=== PATIENT | male | born 1940 | race Caucasian/White ===

== ENCOUNTER 2017-05-03 17:07 | Inpatient (IN) | payer MEDICARE ==
[2017-05-03] MEDS ORDERED: Gadobenate Dimeglumine 529 MG/1 ML (20ML VIAL) ONE ×2 (17:27)
[2017-05-03 18:03] LABS: #Lymphocytes 0.7 thou/uL (1.20-3.40); #Monocytes 0.4 thou/uL (0.11-0.59); #Neutrophils 8.3 thou/uL (1.40-6.50); %Basophils 0.2 % (0.0-1.0); %Eosinophils 0.1 % (0.0-10.0); %Lymphocytes 6.9 % (21.0-51.0); %Monocytes 4.7 % (0.0-10.0); Hematocrit 43.1 % (42.0-52.0); Mean Platelet Volume 6.1 fL (7.4-10.4); Red Blood Cell (RBC) Count 4.79 mill/uL (4.70-6.10); White Blood Cell (WBC) Count 9.4 thou/uL (4.8-10.8)
[2017-05-03 18:21] LABS: ALT (SGPT) 14 U/L (8-55); AST (SGOT) 18 U/L (5-34); Alkaline Phosphatase 79 U/L (40-150); Anion Gap 12 mmol/L (10-20); BUN (Urea Nitrogen) 24 mg/dL (8.4-25.7); Bilirubin, Total 0.6 mg/dL (0.2-1.2); Calc. Creatinine Clearance 0 mL/min (70-130); Calcium 9.2 mg/dL (7.8-10.44); Carbon Dioxide 25 mmol/L (23-31); Chloride 103 mmol/L (98-107); Estimated GFR-MDRD 55; Protein, Total 6.8 g/dL (5.8-8.1)
[2017-05-03] MEDS ORDERED: Lorazepam 2 MG/ML VIAL ONE (19:10)
[2017-05-03 19:33] LABS: Bilirubin Negative (Negative); Blood, Urine Negative (Negative); Glucose, Urine (Dipstick) Negative (Negative); Ketone, Urine Negative (Negative); Nitrite Negative (Negative); Protein, Urine (Dipstick) Negative (Neg-Trace)
--- NOTE | 2017-05-03 21:27 | MRI ---
MRI LUMBAR SPINE WITH AND WITHOUT CONTRAST 05/03/17 HISTORY: Discitis/osteomyelitis at L3-4. This is confirmed on the outside facility MRI. COMPARISON: Outside facility MRI seen on a disc and not uploaded to PACS on the same day. FINDINGS: There is an abnormal enhancement of the inferior end plate of L3 and superior end plate of L4 with pe ripheral enhancing fluid in the disc space. This has an epidural component, anterior dural component, causing some mild compression upon the thecal sac which is narrowed to approximately 6 mm at this le gabriela. There is also extension of infection to the bilateral psoas muscles. A small peripherally enhanc ing collection of the left psoas muscle measuring approximately 7 mm. Levels are as follows: T12-L1: Moderate disc degeneration. No significant neural foraminal or spinal canal narrowing. L1-2: Large anterior disc osteophyte complex. Moderate disc arthropathy. No significant spinal canal narrowing. Spinal canal measures approximately 1 cm. Moderate left and mild right sided neural forami nal narrowing. L2-3: Severe degenerative disc space height loss. Moderate facet arthropathy. Posterior disc osteophy te complex. Moderate bilateral neural foraminal narrowing. The spinal canal measures approximately 8 mm. L3-4: As described above, there is abnormal fluid attenuation of the disc space with enhancement and anterior epidural spread of enhancing phlegmonous tissue and abscess. This extends along the exiting L3 nerve roots. There is also enhancing tissue along the posterior elements and the paraspinal muscul ature although this is likely reflective of scar from prior intervention. L4-5: Severe degenerative disc space height loss. Posterior disc osteophyte complex. Severe facet art hropathy. There is subsequent moderate to severe bilateral neural foraminal narrowing. The thecal sac is narrowed to approximately 7 mm. L5-S1: Severe degenerative disc space disease. Moderate facet arthropathy. Moderate to severe right a nd moderate left sided neural foraminal narrowing. IMPRESSION: Findings suggestive of discitis and osteomyelitis of L3-4 with anterior epidural spread of infection, narrowing the spinal canal to approximately 6 mm as well as abnormal enhancement of bilateral psoas muscles with small left intramuscular abscess measuring less than 1 cm. POS: [facility]
--- NOTE | 2017-05-03 21:29 | MRI ---
MRI THORACIC SPINE WITH AND WITHOUT CONTRAST 05/03/17 HISTORY: Abscess, osteomyelitis, discitis at lumbar spine. COMPARISON: Outside facility MRI dated the same. FINDINGS: No evidence of osteomyelitis or discitis of the thoracic spine. Normal thoracic kyphosis. No abnormal epidural enhancement. Cord signal is normal. No significant neural foraminal or spinal canal narrowi ng. The paraspinal soft tissues are unremarkable. The aortic contour is normal. IMPRESSION: No evidence of osteomyelitis or discitis of the thoracic spine. POS: [facility]
[2017-05-04] MEDS ORDERED: Sodium Chloride 0.45% 1,000 ML IV SCH (00:01)
[2017-05-04] MEDS ORDERED: Ondansetron HCl/PF 4 MG/2 ML Vial IVP PRN (00:01)
[2017-05-04] MEDS ORDERED: Morphine 4 MG/ML VIAL IV PRN (00:01)
[2017-05-04] MEDS ORDERED: Acetaminophen 325 MG TAB PO PRN (00:01)
[2017-05-04] MEDS ORDERED: Ondansetron ODT 4 MG TAB SL PRN (00:01)
[2017-05-04 00:12] VITALS: BMI 29.7
[2017-05-04] MEDS ORDERED: tiZANidine HCl 4 MG TAB PO PRN (06:39)
[2017-05-04] MEDS ORDERED: HYDROcodone/Acetaminophen 7.5/325 mg Tablet PO PRN (06:39)
[2017-05-04] MEDS ORDERED: traMADol HCl 50 MG TAB PO PRN (06:39)
[2017-05-04] MEDS ORDERED: Mag-Al 1200 mg/1200 mg/30 ML UDCUP PO PRN (06:39)
[2017-05-04] MEDS ORDERED: diphenhydrAMINE 50 MG/ML VIAL IVP PRN (06:39)
[2017-05-04] MEDS ORDERED: Milk Of Magnesia 30 ML UDCUP PO PRN (06:39)
--- NOTE | 2017-05-04 09:05 | HP ---
HISTORY OF PRESENT ILLNESS: The patient is a 77-year-old male with a past medical history of coronary artery disease, prior CABG, chronic back pain with multiple prior lumbar surgeries with no reported instrumentation who presented to the emergency department last night after he was notified by an outpatient facility for findings on his MRI suspicious for osteomyelitis and diskitis. Patient reports that he has had a long history of low back pain that has become progressively worse over the last few months without any inciting event. He describes as a dull ache radiating all across his lumbar spine. He denies any leg pain, weakness, numbness, tingling, or bowel or bladder issues. His symptoms are worse with standing for long periods of time and sometimes better with rest. He denies any prior infectious events following his previous lumbar surgeries. He denies any other associated symptoms. PAST MEDICAL HISTORY: Hypertension, hyperlipidemia, coronary artery disease. PAST SURGICAL HISTORY: Coronary artery bypass graft. SOCIAL HISTORY: The patient does not use any drugs. He does not smoke. He drinks socially approximately every other week. ALLERGIES: Patient has no known drug allergies. CURRENT MEDICATIONS: Simvastatin, metoprolol, Cilostazol. REVIEW OF SYSTEMS: Per HPI. PHYSICAL EXAM- NAD, VSS NCAT OP clear, moist oral mucosa Neck NTTP, no meningismus or nuchal rigidity Cardiac RRR Lungs CTAB MSK- FAROM all extremities, no focal weakness Back- TTP over the lumbar spine and paralumbar msk Neuro- AOX4, normal CN exam, no focal deficits IMAGING: MRI of the lumbar spine with and without contrast showed an abnormal fluid collection in the disk space with enhancement suspicious for abscess at L3 -L4. There is also abnormal enhancement of the endplates of L3 and L4 suspicious for osteomyelitis. ASSESSMENT: Osteomyelitis, diskitis, epidural abscess. PLAN: Patient will be admitted to the Neurosurgery service. I have also consulted the Medicine Service and Infectious Disease for further assistance. Blood cultures ordered and the patient was started on IV vancomycin and Zosyn. I will discuss the patient's presentation, exam findings and imaging with Dr. Rodriguez. He will also see the patient. KENDALL
[2017-05-04] MEDS: Vancomycin HCl 1 GM in Premix Bag 1 BAG IVPB SCH ×3 (10:23→16:30)
[2017-05-04] MEDS: Valsartan 80 MG TAB PO SCH (10:24)
[2017-05-04] MEDS: Sodium Chloride 0.45% 1,000 ML IV SCH (10:55)
[2017-05-04 12:10] LABS: PTT 36.9 SEC (22.9-36.1)
[2017-05-04] MEDS ORDERED: Sodium Bicarbonate 2.4 MEQ/5 ML ONE (12:24)
[2017-05-04] MEDS ORDERED: Fentanyl 100 MCG/2 ML VIAL ONE (12:25)
[2017-05-04] MEDS ORDERED: Midazolam HCl 2 mg/2 ml Vial ONE (12:25)
--- NOTE | 2017-05-04 12:37 | PDOC.PN ---
- Subjective Encounter Start Date: 05/04/17 Encounter Start Time: 10:15 Subjective: no fever or weakness in his extremities which are new -: no incontinence of urine or stool - Objective MAR Reviewed: Yes Vital Signs & Weight: Vital Signs (12 hours) Temp Pulse Resp BP Pulse Ox 05/04/17 08:00 97.6 F 66 14 153/75 H 95 05/04/17 04:27 98.5 F 67 18 134/77 98 Weight Weight 196 lb I&O: 05/03/17 05/04/17 05/05/17 06:59 06:59 06:59 Intake Total 10 Balance 10 Result Diagrams: 05/03/17 17:52 05/03/17 17:52 Phys Exam - Physical Examination HEENT: PERRLA, moist MMs Neck: no JVD, supple Respiratory: no wheezing, no rales Cardiovascular: RRR, no significant murmur Gastrointestinal: soft, non-tender, positive bowel sounds Musculoskeletal: no edema, pulses present Neurological: non-focal, moves all 4 limbs Psychiatric: A&O x 3 Dx/Plan (1) Osteomyelitis Code(s): M86.9 - OSTEOMYELITIS, UNSPECIFIED Status: Acute Qualifiers: Osteomyelitis location: other site Comment: of L3-4 (2) HTN (hypertension) Code(s): I10 - ESSENTIAL (PRIMARY) HYPERTENSION Status: Chronic Qualifiers: Hypertension type: essential hypertension Qualified Code(s): I10 - Essential (primary) hypertension (3) Dyslipidemia Code(s): E78.5 - HYPERLIPIDEMIA, UNSPECIFIED Status: Chronic (4) Chronic low back pain Code(s): M54.5 - LOW BACK PAIN; G89.29 - OTHER CHRONIC PAIN Status: Chronic Qualifiers: Back pain laterality: unspecified - Plan for CT guided biopsy of L3-4 area -: d/w -: hold antibiotics till bx/cs of L3-4 area -: will see pt -: continue home meds for now, no asp * . Review of Systems - Medications/Allergies Allergies/Adverse Reactions: Allergies Allergy/AdvReac Type Severity Reaction Status Date / Time No Known Allergies Allergy Verified 05/04/17 00:26 Medications: Current Medications Hydrocodone Bitart/Acetaminophen ([place] 7.5/325) 1 tab PO Q4H PRN PRN Reason: Mild Pain (1-3) Al Hydroxide/Mg Hydroxide (Maalox) 30 ml PO Q4H PRN PRN Reason: Indigestion Diphenhydramine HCl (Benadryl) 25 mg IVP Q6H PRN PRN Reason: Itching Piperacillin Sod/Tazobactam (Sod 3.375 gm/ Sodium Chloride) 100 mls @ 200 mls/ hr IVPB Q6HR [facility] Vancomycin HCl 1 gm/ Device 200 mls @ 200 mls/hr IVPB Q12HR [facility] Sodium Chloride (1/2 Normal Saline) 1,000 mls @ 75 mls/hr IV .[id number] [facility] Last Admin: 05/04/17 10:55 Dose: 1,000 mls Magnesium Hydroxide (Milk Of Magnesium) 30 ml PO Q12H PRN PRN Reason: Constipation Metoprolol Succinate (Toprol Xl) 50 mg PO DAILY [facility] Last Admin: 05/04/17 10:24 Dose: 50 mg Simvastatin (Zocor) 40 mg PO QPM [facility] Sodium Chloride (Flush - Normal Saline) 10 ml IVF Q12HR [facility] Last Admin: 05/04/17 10:25 Dose: 10 ml Sodium Chloride (Flush - Normal Saline) 10 ml IVF PRN PRN PRN Reason: Saline Flush Tizanidine HCl (Zanaflex) 4 mg PO Q6H PRN PRN Reason: Muscle Spasm Tramadol HCl (Ultram) 50 mg PO Q6H PRN PRN Reason: Mild Pain (1-3) Valsartan (Diovan) 160 mg PO DAILY [facility] Last Admin: 05/04/17 10:24 Dose: 160 mg
[2017-05-04] MEDS: Piperacillin/Tazobactam 3.375 GM in Sodium Chloride 0.9% 100 ML IVPB SCH ×2 (16:16→18:28)
[2017-05-04] MEDS: Simvastatin 40 MG TAB PO SCH (20:27)
--- NOTE | 2017-05-04 21:41 | CON ---
DATE OF CONSULTATION: 05/04/2017 REASON FOR CONSULTATION: Lumbosacral spine infection. HISTORY OF PRESENT ILLNESS: A 77-year-old patient with history of coronary artery disease with prior bypass graft surgery and multiple back interventions, but no instrumentation in the past who noticed worsening lumbosacral spine pain for the past [id number] approximately. The pain was not very intense and he went through the usual evaluation by his personal physician and ended up having an MR I expecting to have epidural injections, but the MRI demonstrated findings consistent with an infecti on of the lumbosacral spine and he was admitted for management. Patient just underwent CT guided asp irate. He has mild to moderate pain in the lumbosacral spine. No headaches or visual symptoms. No sore throat, odynophagia or dysphagia. No dyspnea or chest pain. No cough or sputum production. No abdominal pain or diarrhea. No genitourinary symptoms. No joint symptoms. No neurological symptom s. PAST MEDICAL HISTORY: Hypertension, hyperlipidemia, coronary artery disease, multiple lumbosacral sp ine interventions, but no instrumentation in the past. PAST SURGICAL HISTORY: Bilateral knee TKRs and bypass graft surgery. SOCIAL HISTORY: Never a smoker. [place] about [place] [address] [place]. ALLERGIES: None. MEDICATIONS: He had been on Zocor, metoprolol and cilostazol. FAMILY HISTORY: Noncontributory. PHYSICAL EXAMINATION: VITAL SIGNS: Essentially normal. SKIN: Not remarkable. The patient has a peripheral IV access. No Foy catheter. No lymphadenopat hy. HEENT: Ocular movements are conjugate. Sclerae white. Pupils are equal. Oral cavity with no nativ e teeth. NECK: Supple. LUNGS: With symmetric clear breath sounds. HEART: S1 and S2, regular rate. No S3 or S4. ABDOMEN: Soft, not distended or tender. No ascites. No bladder distention. Mild to moderate tende rness in the cervical spine area. EXTREMITIES: No joint inflammatory activity outside the area of involvement. Pulses are 1+ in dorsa lis pedis. Plantar responses are flexure. Moves all extremities equally. NEUROLOGIC: Cognitive function appears to be intact. LABORATORY DATA: White cell count 9.4, hemoglobin 14 and platelets 228 with 80% neutrophils. INR 1. 0. Chemistry was fairly unremarkable except for glucose of 169 and CRP of 2.94. Urinalysis was norm al. The Gram stain on the aspirate showed many wbc's, but no organisms seen. ASSESSMENT: 1. Coronary artery disease. 2. Hypertension. 3. Multiple prior lumbosacral interventions, but no instrumentation. 4. Worsening pain with MRI findings that are indicative of diskitis and osteomyelitis L3-L4 with ant erior epidural spread, narrowing spinal canal and enhancement of bilateral psoas muscle with a small left intermuscular abscess less than 1 cm. DISCUSSION: Patient has lumbosacral spine diskitis with subsequent development of osteomyelitis and paraspinal infection, Staphylococcus aureus including MRSA, gram-negative rods, Streptococci and Ente rococcus are the most common organisms associated with such processes. Continue Zosyn and vancomycin and wait on culture results. Hopefully, we will have organisms retrieved, PICC line placement and t hen arrange for outpatient management and follow up imaging studies depending on clinical progress.
[2017-05-05] MEDS: Piperacillin/Tazobactam 3.375 GM in Sodium Chloride 0.9% 100 ML IVPB SCH ×5 (00:38→23:56)
[2017-05-05] MEDS: Sodium Chloride 0.45% 1,000 ML IV SCH ×2 (02:52→17:38)
[2017-05-05 04:39] LABS: #Eosinphils 0.1 thou/uL (0.0-0.7); #Lymphocytes 2.6 thou/uL (1.20-3.40); #Monocytes 1.1 thou/uL (0.11-0.59); %Basophils 0.3 % (0.0-1.0); %Eosinophils 0.6 % (0.0-10.0); %Lymphocytes 22.1 % (21.0-51.0); Hematocrit 39.6 % (42.0-52.0); Mean Platelet Volume 6.5 fL (7.4-10.4); Red Blood Cell (RBC) Count 4.37 mill/uL (4.70-6.10); White Blood Cell (WBC) Count 11.7 thou/uL (4.8-10.8)
[2017-05-05 04:48] LABS: Anion Gap 11 mmol/L (10-20); BUN (Urea Nitrogen) 21 mg/dL (8.4-25.7); Calc. Creatinine Clearance 56 mL/min (70-130); Calcium 8.8 mg/dL (7.8-10.44); Carbon Dioxide 27 mmol/L (23-31); Chloride 103 mmol/L (98-107); Estimated GFR-MDRD 50
[2017-05-05] MEDS ORDERED: Vancomycin HCl 1 GM in Premix Bag 1 BAG IVPB SCH (05:00)
[2017-05-05] MEDS: Valsartan 80 MG TAB PO SCH (09:39)
--- NOTE | 2017-05-05 10:05 | PDOC.PN ---
- Subjective Encounter Start Date: 05/05/17 Encounter Start Time: 09:20 Subjective: no sob, is amb in hallway -: backpain is tolerable on current meds - Objective MAR Reviewed: Yes Vital Signs & Weight: Vital Signs (12 hours) Temp Pulse Resp BP Pulse Ox 05/05/17 04:05 97.4 F L 57 L 16 107/55 L 95 05/05/17 00:00 98.0 F 64 138/80 97 Weight Weight 196 lb I&O: 05/04/17 05/05/17 05/06/17 06:59 06:59 06:59 Intake Total 10 2900 Output Total 5 Balance 10 2895 Result Diagrams: 05/05/17 03:08 05/05/17 03:08 Phys Exam - Physical Examination HEENT: PERRLA, moist MMs Neck: no JVD, supple Respiratory: no wheezing, no rales Cardiovascular: RRR, no significant murmur Gastrointestinal: soft, non-tender, positive bowel sounds Musculoskeletal: no edema, pulses present Neurological: non-focal, moves all 4 limbs Psychiatric: A&O x 3 Dx/Plan (1) Osteomyelitis Code(s): M86.9 - OSTEOMYELITIS, UNSPECIFIED Status: Acute Qualifiers: Osteomyelitis location: other site Comment: of L3-4 (2) HTN (hypertension) Code(s): I10 - ESSENTIAL (PRIMARY) HYPERTENSION Status: Chronic Qualifiers: Hypertension type: essential hypertension Qualified Code(s): I10 - Essential (primary) hypertension (3) Dyslipidemia Code(s): E78.5 - HYPERLIPIDEMIA, UNSPECIFIED Status: Chronic (4) Chronic low back pain Code(s): M54.5 - LOW BACK PAIN; G89.29 - OTHER CHRONIC PAIN Status: Chronic Qualifiers: Back pain laterality: unspecified Comment: prior lumbar spine surgery x3, c-spinex1 - Plan is on vanc and ceftriaxone -: encouraged to drink free water -: await bx culture results from l-spine -: Pharmacy to dose vanc, had mild elevation in renal # * . Review of Systems - Medications/Allergies Allergies/Adverse Reactions: Allergies Allergy/AdvReac Type Severity Reaction Status Date / Time No Known Allergies Allergy Verified 05/04/17 00:26 Medications: Current Medications Hydrocodone Bitart/Acetaminophen ([place] 7.5/325) 1 tab PO Q4H PRN PRN Reason: Mild Pain (1-3) Al Hydroxide/Mg Hydroxide (Maalox) 30 ml PO Q4H PRN PRN Reason: Indigestion Diphenhydramine HCl (Benadryl) 25 mg IVP Q6H PRN PRN Reason: Itching Piperacillin Sod/Tazobactam (Sod 3.375 gm/ Sodium Chloride) 100 mls @ 200 mls/ hr IVPB Q6HR [facility] Last Admin: 05/05/17 06:42 Dose: 100 mls Sodium Chloride (1/2 Normal Saline) 1,000 mls @ 75 mls/hr IV .[id number] [facility] Last Admin: 05/05/17 02:52 Dose: Not Given Vancomycin HCl 1 gm/ Device 200 mls @ 200 mls/hr IVPB 0500,1700 [facility] Magnesium Hydroxide (Milk Of Magnesium) 30 ml PO Q12H PRN PRN Reason: Constipation Metoprolol Succinate (Toprol Xl) 50 mg PO DAILY [facility] Last Admin: 05/05/17 09:39 Dose: 50 mg Simvastatin (Zocor) 40 mg PO QPM [facility] Last Admin: 05/04/17 20:27 Dose: 40 mg Sodium Chloride (Flush - Normal Saline) 10 ml IVF Q12HR [facility] Last Admin: 05/05/17 09:39 Dose: Not Given Sodium Chloride (Flush - Normal Saline) 10 ml IVF PRN PRN PRN Reason: Saline Flush Tizanidine HCl (Zanaflex) 4 mg PO Q6H PRN PRN Reason: Muscle Spasm Tramadol HCl (Ultram) 50 mg PO Q6H PRN PRN Reason: Mild Pain (1-3) Valsartan (Diovan) 160 mg PO DAILY [facility] Last Admin: 05/05/17 09:39 Dose: 160 mg
[2017-05-05] MEDS ORDERED: VANCOMYCIN IVPB PRN (11:25)
[2017-05-05] MEDS: Vancomycin HCl 1 GM in Premix Bag 1 BAG IVPB SCH (17:39)
[2017-05-05] MEDS: Simvastatin 40 MG TAB PO SCH (20:11)
[2017-05-06] MEDS: Vancomycin HCl 1 GM in Premix Bag 1 BAG IVPB SCH ×2 (04:04→17:08)
[2017-05-06] MEDS: Sodium Chloride 0.45% 1,000 ML IV SCH ×2 (04:05→15:07)
[2017-05-06] MEDS: Piperacillin/Tazobactam 3.375 GM in Sodium Chloride 0.9% 100 ML IVPB SCH (05:52)
[2017-05-06 06:04] LABS: Vancomycin, Trough 39.7 ug/mL
[2017-05-06 08:25] LABS: Anion Gap 11 mmol/L (10-20); BUN (Urea Nitrogen) 21 mg/dL (8.4-25.7); Calc. Creatinine Clearance 50 mL/min (70-130); Carbon Dioxide 28 mmol/L (23-31); Chloride 105 mmol/L (98-107); Estimated GFR-MDRD 43
[2017-05-06] MEDS: Valsartan 80 MG TAB PO SCH (08:35)
--- NOTE | 2017-05-06 09:36 | CT ---
CT GUIDED TRANSPEDICULAR 4TH LUMBAR VERTEBRA BONE BIOPSY: DATE: 05/04/17. HISTORY: Patient with abnormal MRI with L3-4 intervertebral disk space height loss and edema concerning for di skitis osteomyelitis. FINDINGS: Informed consent was obtained from the patient. The right L4 pedicle was localized using CT guidance . The overlying skin was prepped and draped in the usual sterile manner. A 1% Lidocaine solution wa s used to anesthetize the overlying soft tissues. A small dermatotomy was made. An 11 gauge Bernardino i needle was placed using CT guidance into the right L4 pedicle. The lateral upper aspect. The late ral upper aspect of the right L4 vertebra was biopsied using a transpedicular approach. An approxima tely single 12-13 mm 11-gauge bone core biopsy specimen with adjacent areas of liquid was removed. Zulema negrete sent to pathology for workup including gram stains, culture, and sensitivity. No postprocedu re complications encountered. IMPRESSION: Successful right transpedicular L4 upper lateral aspect vertebral body bone biopsy. POS: [facility]
--- NOTE | 2017-05-06 11:10 | PDOC.PN ---
- Subjective Encounter Start Date: 05/06/17 Encounter Start Time: 10:30 Subjective: no new symptoms, feels better -: is amb well - Objective MAR Reviewed: Yes Vital Signs & Weight: Vital Signs (12 hours) Temp Pulse Resp BP Pulse Ox 05/06/17 08:33 97.6 F 64 16 97 05/06/17 08:02 97.6 F 64 16 116/72 97 05/06/17 04:00 97.7 F 65 16 104/62 96 05/06/17 00:00 97.6 F 73 16 111/68 95 Weight Weight 196 lb I&O: 05/05/17 05/06/17 05/07/17 06:59 06:59 06:59 Intake Total 2900 1250 Output Total 5 Balance 2895 1250 Result Diagrams: 05/05/17 03:08 05/06/17 05:09 Phys Exam - Physical Examination HEENT: PERRLA, moist MMs Neck: no JVD, supple Respiratory: no wheezing, no rales Cardiovascular: RRR, no significant murmur Gastrointestinal: soft, non-tender, positive bowel sounds Musculoskeletal: no edema, pulses present Neurological: non-focal, moves all 4 limbs Psychiatric: A&O x 3 Dx/Plan (1) Osteomyelitis Code(s): M86.9 - OSTEOMYELITIS, UNSPECIFIED Status: Acute Qualifiers: Osteomyelitis location: other site Comment: of L3-4 (2) HTN (hypertension) Code(s): I10 - ESSENTIAL (PRIMARY) HYPERTENSION Status: Chronic Qualifiers: Hypertension type: essential hypertension Qualified Code(s): I10 - Essential (primary) hypertension (3) Dyslipidemia Code(s): E78.5 - HYPERLIPIDEMIA, UNSPECIFIED Status: Chronic (4) Chronic low back pain Code(s): M54.5 - LOW BACK PAIN; G89.29 - OTHER CHRONIC PAIN Status: Chronic Qualifiers: Back pain laterality: unspecified Comment: prior lumbar spine surgery x3, c-spinex1 - Plan is on vanc and zosyn -: watch for renal function with above antibiotics -: is going for picc line today -: cultures so far are -ve -: CM for help with iv antibiotics per advice * . Review of Systems - Medications/Allergies Allergies/Adverse Reactions: Allergies Allergy/AdvReac Type Severity Reaction Status Date / Time No Known Allergies Allergy Verified 05/04/17 00:26 Medications: Current Medications Hydrocodone Bitart/Acetaminophen ([place] 7.5/325) 1 tab PO Q4H PRN PRN Reason: Mild Pain (1-3) Al Hydroxide/Mg Hydroxide (Maalox) 30 ml PO Q4H PRN PRN Reason: Indigestion Diphenhydramine HCl (Benadryl) 25 mg IVP Q6H PRN PRN Reason: Itching Sodium Chloride (1/2 Normal Saline) 1,000 mls @ 75 mls/hr IV .[id number] [facility] Last Admin: 05/06/17 04:05 Dose: 1,000 mls Vancomycin HCl 1 gm/ Device 200 mls @ 200 mls/hr IVPB 0500,1700 [facility] Last Admin: 05/06/17 04:04 Dose: 200 mls Piperacillin Sod/Tazobactam (Sod 2.25 gm/ Sodium Chloride) 100 mls @ 200 mls/ hr IVPB Q8HR [facility] Magnesium Hydroxide (Milk Of Magnesium) 30 ml PO Q12H PRN PRN Reason: Constipation Metoprolol Succinate (Toprol Xl) 50 mg PO DAILY [facility] Last Admin: 05/06/17 08:35 Dose: 50 mg Miscellaneous Medication (Pharmacy To Dose) 1 each IVPB PRN PRN PRN Reason: Pharmacy to dose Simvastatin (Zocor) 40 mg PO QPM [facility] Last Admin: 05/05/17 20:11 Dose: 40 mg Sodium Chloride (Flush - Normal Saline) 10 ml IVF Q12HR [facility] Last Admin: 05/06/17 08:36 Dose: 10 ml Sodium Chloride (Flush - Normal Saline) 10 ml IVF PRN PRN PRN Reason: Saline Flush Tizanidine HCl (Zanaflex) 4 mg PO Q6H PRN PRN Reason: Muscle Spasm Tramadol HCl (Ultram) 50 mg PO Q6H PRN PRN Reason: Mild Pain (1-3) Valsartan (Diovan) 160 mg PO DAILY [facility] Last Admin: 05/06/17 08:35 Dose: 160 mg
[2017-05-06] MEDS ORDERED: Piperacillin/Tazobactam 2.25 GM in Sodium Chloride 0.9% 100 ML IVPB SCH (14:00)
--- NOTE | 2017-05-06 15:53 | SPC ---
SONOGRAPHIC GUIDED LEFT UPPER EXTREMITY PICC PLACEMENT: HISTORY: Back infection. Need for long-term antibiotics. FINDINGS: After explaining the procedure and answering all questions, the left upper extremity was prepped and draped in the usual sterile fashion. Sterile technique, buffered local anesthesia, sonographic sulaiman nce, and a 22-gauge needle were used to carefully access the left basilic vein. Standard technique w as then used to place the tip of a 5 [place] single-lumen PICC so that the tip lies at the level of th e superior vena cava. The catheter was flushed and secured externally. The patient tolerated the pr ocedure well and was returned in unchanged condition. IMPRESSION: Technically successful left upper extremity PICC placement. Catheter is now ready for use. POS: [facility]
[2017-05-06] MEDS ORDERED: cefTRIAXone\\ROCEPHIN 2 GM in Sodium Chloride 0.9% 100 ML IVPB SCH (16:00)
[2017-05-06] MEDS: Simvastatin 40 MG TAB PO SCH (20:20)
[2017-05-07 04:49] LABS: Anion Gap 7 mmol/L (10-20); BUN (Urea Nitrogen) 19 mg/dL (8.4-25.7); Calc. Creatinine Clearance 59 mL/min (70-130); Calcium 8.9 mg/dL (7.8-10.44); Carbon Dioxide 29 mmol/L (23-31); Chloride 107 mmol/L (98-107); Estimated GFR-MDRD 53
[2017-05-07] MEDS: Vancomycin HCl 1 GM in Premix Bag 1 BAG IVPB SCH (04:52)
[2017-05-07] MEDS: Sodium Chloride 0.45% 1,000 ML IV SCH (05:38)
[2017-05-07 08:29] VITALS: BP 108/68; TEMP 97.8
[2017-05-07] MEDS: Valsartan 80 MG TAB PO SCH (08:47)
--- NOTE | 2017-05-07 09:00 | PDOC.PN ---
- Subjective Encounter Start Date: 05/07/17 Encounter Start Time: 08:45 Subjective: no new complaints -: is amb in hallway - Objective MAR Reviewed: Yes Vital Signs & Weight: Vital Signs (12 hours) Temp Pulse Resp BP Pulse Ox 05/07/17 08:00 97.8 F 96 12 108/68 96 05/07/17 01:01 97.7 F 63 18 120/75 95 05/06/17 21:32 97.6 F 63 18 140/66 98 Weight Weight 196 lb I&O: 05/06/17 05/07/17 05/08/17 06:59 06:59 06:59 Intake Total 1250 2530 Balance 1250 2530 Result Diagrams: 05/05/17 03:08 05/07/17 03:25 Phys Exam - Physical Examination HEENT: PERRLA, moist MMs Neck: no JVD, supple Respiratory: no wheezing, no rales Cardiovascular: RRR, no significant murmur Gastrointestinal: soft, non-tender, positive bowel sounds Musculoskeletal: no edema, pulses present Neurological: non-focal, moves all 4 limbs Psychiatric: A&O x 3 Dx/Plan (1) Osteomyelitis Code(s): M86.9 - OSTEOMYELITIS, UNSPECIFIED Status: Acute Qualifiers: Osteomyelitis location: other site Comment: of L3-4 (2) HTN (hypertension) Code(s): I10 - ESSENTIAL (PRIMARY) HYPERTENSION Status: Chronic Qualifiers: Hypertension type: essential hypertension Qualified Code(s): I10 - Essential (primary) hypertension (3) Dyslipidemia Code(s): E78.5 - HYPERLIPIDEMIA, UNSPECIFIED Status: Chronic (4) Chronic low back pain Code(s): M54.5 - LOW BACK PAIN; G89.29 - OTHER CHRONIC PAIN Status: Chronic Qualifiers: Back pain laterality: unspecified Comment: prior lumbar spine surgery x3, c-spinex1 - Plan vanc and rocephin till may 18 -: weekly labs per -: dc when outpt antibiotics are arranged -: hemostable -: renal function stable now * .
--- NOTE | 2017-05-07 13:03 | DIS ---
HOSPITAL COURSE: The patient is a 77-year-old male with history of coronary artery disease , multiple prior back surgeries, but no instrumentation who over the past several months had progress ively worsening low back pain. He was seen at an outside facility where MRI was done with concern fo r osteomyelitis, diskitis and epidural abscess. Therefore, he presented to the emergency department and had a repeat MRI was admitted to the Neurosurgery Service for further management. We also consul [facility] for medical management and Infectious Disease for further assistance with this acute inf ectious process. No neurosurgical intervention was indicated. The patient underwent CT guided biops y. Gram stain was notable for multiple WBCs, no organisms. Cultures at 48 hours were negative for a ny growth. PICC line was placed and patient will receive IV antibiotics for several weeks per ID rec ommendations. He was dismissed to home. Prescription for Tylenol #3 provided. We discussed precaut ions and reason for returns.
--- NOTE | 2017-05-07 14:06 | DIS ---
DATE OF ADMISSION: 05/03/2017 DATE OF DISCHARGE: 05/07/2017 DISCHARGE DISPOSITION: To home. 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 SECONDARY DISCHARGE DIAGNOSES: Hypertension, dyslipidemia, and chronic back pain. PROCEDURES DONE DURING HOSPITALIZATION: The patient has had lumbar spine MRI done which showed abnormal fluid attenuation of the disk space with enhancement in anterior epidural spread of enhancing phlegmonous abscess tissue and abscess. This extends along the exiting L3 nerve roots. There is also enhancing tissue along the posterior elements and the paraspinal musculature. Findings were suggestive of diskitis with osteomyelitis of L3-4 with anterior epidural spread of infection. There was also abnormal enhancement of bilateral psoas muscles with small left intramuscular abscess measuring less than 1 cm. Thoracic spine MRI done showed no evidence of osteomyelitis or diskitis. Patient has had CT guided L4 upper lateral aspect vertebral body, bone biopsy done on 05/04/2017. He has had a PICC line placed on 05/06/2017. Blood cultures x2 no growth. Bone aspirate from the lumbar spine as there is no growth at 48 hours. There was no organism seen on Gram stain. LABORATORY DATA: Discharge white count of 11, with hemoglobin and hematocrit of 13 and 39, platelet count 226. Sedimentation rate was 25. CRP 2.94. Discharge BUN and creatinine 19 and 1.3. Vancomycin trough levels on 2016 18 mcg per mL. DISCHARGE MEDICATIONS: Rocephin 2 grams daily and vancomycin 1 gram daily till 05/18/2017. Weekly CBC, CRP, CMP and vancomycin trough levels, Tylenol #3 p.r.n. as before. ALLERGIES: No known drug allergies. INPATIENT CONSULT: Dr. Perez for Infectious Disease. DISCHARGE PLAN: Patient to follow up with Dr. Perez as advised. He also needs to follow up with Dr. Rodriguez, neurosurgeon, as advised and primary care physician in 1 week. BRIEF COURSE DURING HOSPITALIZATION: Patient initially came to the ER after he was told that his MRI findings on the lumbar spine were suspicious for osteomyelitis at the L3-4 with diskitis. The patient has had chronic low back pain with worsening from last 3 weeks or so. He has not had any fever at home. In view of lumbar spine findings, patient has had consultation with Dr. Perez. He was admitted by Neurosurgery. Sound physicians were consulted for comanagement of medical issues. He was on broad spectrum IV antibiotics. The patient has had CT-guided lumbar spine biopsy done with cultures sent. These cultures have not grown any organism. His blood cultures were negative as well. In view of this, Dr. Perez has advised him to take vancomycin and ceftriaxone until the 05/18/2017. He needs follow up with Dr. Perez as advised with weekly labs. He has been cleared by Neurosurgery for discharge today. His outpatient antibiotics have been setup for infusion at home by case management. Please see a face to face documentation for the day of discharge on [facility]. [facility]
== END 2017-05-07 09:35 | disposition home health service (06) | DRG 477 ==
LOC: ERS 17:07 → SURG A 23:00
PROVIDERS: ADMIT Neurological Surgery; ATTEND Neurological Surgery
PROC: 0QB03ZX Excision of Lumbar Vertebra, Percutaneous Approach, Diagnostic (ICD-10-PCS; principal; 2017-05-04)
PROC: 02HV33Z Insertion of Infusion Device into Superior Vena Cava, Percutaneous Approach (ICD-10-PCS; 2017-05-06)
PROC: B548ZZA Ultrasonography of Superior Vena Cava, Guidance (ICD-10-PCS; 2017-05-06)
DX: M46.26 Osteomyelitis of vertebra, lumbar region (principal); G06.1 Intraspinal abscess and granuloma; I10 Essential (primary) hypertension; I25.10 Atherosclerotic heart disease of native coronary artery without angina pectoris; Z95.1 Presence of aortocoronary bypass graft; G89.29 Other chronic pain; E78.5 Hyperlipidemia, unspecified; M54.5 Low back pain; Z96.653 Presence of artificial knee joint, bilateral
CPT/HCPCS: 36415; 36569; 72131; 72157; 72158; 77012; 80048; 80053; 80202; 81003; 85025; 85652; 85730; 86140; 87040; 87070; 87205; 96374; A4216; A9579; C1751; G8978-GP-CI; G8979-GP-CI; G8980-GP-CI; J0696; J2060; J2250; J2543; J3010; J3370; J7050

== ENCOUNTER 2017-06-13 15:07 | Outpatient (CLI) | payer MEDICARE ==
--- NOTE | 2017-06-13 18:03 | MRI ---
MRI LUMBAR SPINE WITH AND WITHOUT GADOLINIUM CONTRAST: 06/13/17 HISTORY: Discitis/osteomyelitis. Back pain. FINDINGS: Edema previously seen about the L3-4 disc space has become much more extensive, now occupying all of the L4 vertebral body and extending to the right L4 pedicle and posterior elements. Fluid is now pres ent within the L4 vertebral body and bone marrow edema throughout the L5 vertebral body, extending to each pedicle. Edema involving the inferior aspect of the L3 vertebral body is stable. The enhancement and fluid posterior to the involved L4 vertebral body is similar in appearance to the prior study and, along with circumferential degenerative changes, continues to marrow the thecal sac , similar in appearance to the prior study. Postoperative changes of the lower lumbar spine similar i n appearance to the previous exam. Multilevel degenerative changes are stable. IMPRESSION: Interval extension of the lower lumbar inflammation, now involving the entirety of the L4 and L5 emily tebral bodies and the right L4 posterior elements. Involvement of the L3 vertebral body is stable. In addition to the L3-4 disc fluid, there is now fluid in the L4-5 disc. Anterior epidural fluid and en hancement and compression of the thecal sac have not changed significantly. POS: [facility]
== END 2017-06-13 15:08 | disposition home or self-care (01) ==
LOC: TBSIIMAG 15:07
PROVIDERS: ATTEND Neurological Surgery
DX: M46.26 Osteomyelitis of vertebra, lumbar region (principal)
CPT/HCPCS: 72158

== ENCOUNTER 2018-03-06 14:33 | Outpatient (CLI) | payer MEDICARE ==
[~2018-03-06 14:33] MED LIST: Gadobenate Dimeglumine 529 MG/1 ML (20ML VIAL) ONE
--- NOTE | 2018-03-06 17:33 | MRI ---
MRI LUMBAR SPINE WITH AND WITHOUT CONTRAST: 03/06/18 Multiplanar and multisequential imaging lumbar spine obtained. Postcontrast images were obtained administering 9 mL of Multihance IV. Contrast dose was reduced to G FR. INDICATIONS: Lumbar spinal stenosis and back pain. Comparison made to lumbar MRI 06/13/17. FINDINGS: Severe degenerative disc and end plate changes of the lumbar spine again noted. Loss of disc space at all levels of the lumbar spine with prominent osteophytes from the lumbar vertebrae. Degenerative en d plate edema at L3-4 is similar to a prior study. Mild loss of height of L4 vertebra is stable from 2017. No evidence of acute or interval compression deformity. At L1-2, broad based disc bulge. Facet and ligamentous hypertrophy. Mild to moderate central canal st enosis. Bilateral foraminal narrowing more prominent on the left. At L2-3, disc bulge with facet hypertrophy. No significant central canal or foraminal stenosis. At L3-4, diffuse disc bulge. Facet and ligamentous hypertrophy. Mild central canal stenosis. Bilatera l foraminal narrowing and encroachment. At L4-5, broad based disc bulge more prominent to the left. Facet and ligamentous hypertrophy. Mild c entral canal stenosis. Bilateral foraminal stenosis. At L5-S1, disc bulge. Facet hypertrophy. Mild central canal stenosis. Bilateral foraminal stenosis. IMPRESSION: Severe degenerative disc and end plate changes at all levels of the lumbar spine. Central canal and f oraminal stenosis at several levels as described. Not significantly changed when compared to 06/13/17 . POS: [facility]
== END 2018-03-06 14:34 | disposition home or self-care (01) ==
LOC: TBSIIMAG 14:33
PROVIDERS: ATTEND Neurological Surgery
DX: M48.061 Spinal stenosis, lumbar region without neurogenic claudication (principal); M51.36 Other intervertebral disc degeneration, lumbar region; M48.07 Spinal stenosis, lumbosacral region; M99.83 Other biomechanical lesions of lumbar region
CPT/HCPCS: 36415; 72158; 82565; 85025; A9579